=== PATIENT | male | born 1965 | race Caucasian/White ===

== ENCOUNTER 2023-10-06 10:29 | Outpatient (OUT) | payer OTHER, SELFPAY ==
--- NOTE | 2023-10-06 10:42 | XR_ITS ---
The [address] [address] Patient Name: SAVANAH NAM MRN: [id number] date: 1965 Sex: M Assigned Patient Location: [facility] Current Patient Location: Accession/Order Number: [id number] Exam Date: 10/06/2023 10:50 Report Date: 10/07/2023 07:03 At the request of: JLUIANO FORMAN Procedure: XR ankle LT min 3V PROCEDURE: XR ankle LT min 3V HISTORY: Acute Left Ankle Pain M25.572 COMPARISON: None. FINDINGS: BONES:Thin cortical avulsion fragment versus summation artifact adjacent the distal margin of the lateral malleolus. SOFT TISSUES:Mild soft tissue swelling medial and lateral to the ankle. EFFUSION:None visible. OTHER: Negative. XR/XR ankle LT min 3V IMPRESSION: 1. Small cortical avulsion fracture from the lateral malleolus versus summation artifact. Avulsion is favored. Follow-up recommended. 2. Moderate soft tissue swelling. Electronically authenticated by: STEVEN DOWD Date: 10/07/2023 07:03
== END 2023-10-06 10:30 | disposition home or self-care (01) ==
LOC: RAD 10:33
PROVIDERS: PCP Family Medicine; Visit Provider Physician Assistant
DX: M25.572 Pain in left ankle and joints of left foot (principal)
CPT/HCPCS: 73610